=== PATIENT | male | born 1930 | race Two or more races ===

== ENCOUNTER 2017-12-24 16:22 | Emergency (ER) | payer OTHER ==
[~2017-12-24] VITALS: Ht 172.7 cm; Wt 68.9 kg
--- NOTE | 2017-12-24 16:53 | NUR ---
Recieved patient to ED bed 12, pt walke din to ER w/ c/o back pain s/p pulling up his sister from the floor 10 days ago. NAD. RR even and unlabored. Pending er MD evaluation
[2017-12-24] MEDS ORDERED: IBUPROFEN 600 MG TABLET PO ONE ×2 (17:27→17:30)
--- NOTE | 2017-12-24 17:31 | NUR ---
Pt taken to Radioology dept for XRAY
[2017-12-24 18:51] VITALS: BP 127/68
--- NOTE | 2017-12-24 18:51 | NUR ---
Patient discharged to home in stable condition. Written and verbal after care instructions given. Patient verbalizes understanding of instruction.
== END 2017-12-24 18:53 | disposition home or self-care (01) ==
LOC: ER 16:24
DX: M48.56XA Collapsed vertebra, not elsewhere classified, lumbar region, initial encounter for fracture (principal); I10 Essential (primary) hypertension; I25.10 Atherosclerotic heart disease of native coronary artery without angina pectoris; K21.9 Gastro-esophageal reflux disease without esophagitis; M43.16 Spondylolisthesis, lumbar region; M47.816 Spondylosis without myelopathy or radiculopathy, lumbar region; N40.0 Benign prostatic hyperplasia without lower urinary tract symptoms; Z95.1 Presence of aortocoronary bypass graft; Z88.1 Allergy status to other antibiotic agents
CPT/HCPCS: 72100; 99284; A4606; Z7610